=== PATIENT | male | born 1995 | race Two or more races ===

== ENCOUNTER 2016-07-11 14:03 | Emergency (ER) | payer MEDICAID ==
[~2016-07-11] VITALS: Ht 162.6 cm; Wt 76.2 kg
[2016-07-11 14:22] LABS: Basophils # (auto) 0.1 uL; Basophils % (auto) 0.4 % (0.0-2.0); Eosinophils # (auto) 0.1 uL; Eosinophils % (auto) 0.4 % (0.0-7.0); Hematocrit 51.7 % (41.0-53.0); Hemoglobin 16.7 g/dL (13.5-17.5); Lymphocytes # (auto) 5.3 uL; Lymphocytes % (auto) 45.4 % (10.0-50.0); Mean Corpuscular Hemoglobin 28.1 pg (28.0-32.0); Mean Corpuscular Hgb Conc. 32.3 g/dL (32.0-36.0); Mean Corpuscular Volume 86.8 fL (80.0-100.0); Neutrophils # (auto) 5.2 uL; Neutrophils % (auto) 44.8 % (37.0-80.0); Platelet Count (auto) 222 10^3/uL (140-450); Red Cell Distribution Width 14.8 % (11.6-16.0); White Blood Cell 11.6 10^3/uL (4.4-10.8)
[2016-07-11 16:19] LABS: INR 1.11 (0.9-1.15); Partial Thromboplastin Time 31.3 sec (22.64-33.71); Prothrombin Time 11.4 sec (9.37-12.3)
[2016-07-11 16:39] LABS: Albumin 4.3 g/dL (3.4-5.0); BUN/Creatinine Ratio 10.2; Calcium 8.9 mg/dL (8.5-10.1)
[2016-07-11 16:42] LABS: Bilirubin, Total 0.5 mg/dL (0.2-1.0)
[2016-07-11 18:04] VITALS: BP 133/98
== END 2016-07-11 19:27 | disposition home or self-care (01) ==
LOC: ER 14:07
DX: K64.9 Unspecified hemorrhoids (principal)
CPT/HCPCS: 36415; 80053; 85025; 85610; 85730